=== PATIENT | female | born 1975 | race Caucasian/White ===

== ENCOUNTER 2021-03-06 05:30 | Day surgery (SDC) | payer SELFPAY ==
[~2021-03-06 05:30] MED LIST: Midazolam 1 MG/ML 2 ML SDV ONE; fentaNYL 100 MCG/2 ML SDV ONE
[2021-03-06] MEDS ORDERED: Midazolam 1 MG/ML 2 ML SDV IV ONE ×7 (05:31→06:39)
[2021-03-06] MEDS ORDERED: fentaNYL 100 MCG/2 ML SDV IV ONE ×5 (05:31→06:57)
[2021-03-06] MEDS ORDERED: Dextrose 5%-0.45% NaCl 1,000 ML IV SCH (06:00)
[2021-03-06] MEDS ORDERED: Sodium Chloride 0.9% 10 ML Syringe FLUSH SCH (09:00)
== END 2021-03-06 09:00 | disposition home or self-care (01) ==
LOC: DL.ENDO 05:30
PROVIDERS: ATTEND Internal Medicine Gastroenterology
DX: Z12.11 Encounter for screening for malignant neoplasm of colon (principal); E66.01 Morbid (severe) obesity due to excess calories; E78.00 Pure hypercholesterolemia, unspecified; Z98.890 Other specified postprocedural states; Z01.812 Encounter for preprocedural laboratory examination; Z20.822 Contact with and (suspected) exposure to COVID-19; Z68.36 Body mass index [BMI] 36.0-36.9, adult
CPT/HCPCS: 45378; 87635; J2250; J3010; J7042; U0002